=== PATIENT | female | born 1960 | race Caucasian/White ===

== ENCOUNTER 2017-06-02 06:38 | Day surgery (SDC) | payer MEDICARE, BC ==
[2017-06-02] MEDS ORDERED: LIDOCAINE 1% W/EPI 1:200,000 MPF 30ML SQ ONE (06:39)
[2017-06-02] MEDS ORDERED: PROPOFOL 10 MG/ML VIAL IV ONE (06:39)
[2017-06-02] MEDS ORDERED: FENTANYL PF 100MCG/2ML VIAL IV ONE (06:39)
[2017-06-02] MEDS ORDERED: DEXAMETHASONE PRESERVATIVE FREE 10MG/ML VIAL IV ONE (06:39)
[2017-06-02] MEDS ORDERED: LIDOCAINE 2% MDV (20MG/ML) 20ML VIAL IV ONE (06:39)
[2017-06-02] MEDS ORDERED: MIDAZOLAM HCL 2MG/2ML VIAL IV ONE (06:39)
[2017-06-02] MEDS ORDERED: BUPIVACAINE 0.5% W/EPI MPF 30 ML VIAL IVP ONE (06:39)
--- NOTE | 2017-06-02 15:10 | Operative Note - Ferro ---
DATE OF SURGERY: 06/02/17 PREOPERATIVE DIAGNOSES: 1. POST CERVICAL LAMINECTOMY SYNDROME, ICD-10 CODE M96.1. 2. CERVICAL RADICULITIS, ICD-10 CODE M54.13. OPERATION: FLUOROSCOPICALLY-GUIDED CERVICAL EPIDURAL INJECTION RIGHT QUADRANT, C6/C7. SURGEON: WALDEMAR WORRELL D.O. ANESTHESIA: LOCAL WITH SEDATION. ANESTHESIA PROVIDER: LYNN CANALES CRNA. INDICATION: This patient presents with plate and screw fusion cervical spine at 5/6 and pain, which starts in the neck but then extends into the shoulders and arms. Diagnostics confirm the plate and screw fusion at 5/6 and diffuse abnormalities above and below. PROCEDURE: Intravenous line, vital sign monitoring, IV sedation, prepped, draped, sterile technique. The epidural interspace at C5/6 could not be entered , 6/7 marked and infiltrated. A #20 gauge 3.5-inch Tuohy needle with loss-of- resistance. 5 mL of 0.125% Marcaine with Dexamethasone injected. Needle removed. Neck cleaned, topical antibiotic, and sterile dressing were applied. We will monitor and evaluate. cc: Dr. Whitney JOB NUMBER: [id number] MTDD
== END 2017-06-02 08:35 | disposition home or self-care (01) ==
LOC: SUR 06:38
PROVIDERS: ATTEND Pain Medicine Interventional Pain Medicine
DX: M96.1 Postlaminectomy syndrome, not elsewhere classified (principal); M54.13 Radiculopathy, cervicothoracic region; I10 Essential (primary) hypertension; E78.00 Pure hypercholesterolemia, unspecified
CPT/HCPCS: 62320; 01936; Q9967; J1100; J3010

== ENCOUNTER 2017-09-01 06:57 | Day surgery (SDC) | payer MEDICARE, BC ==
[2017-09-01] MEDS ORDERED: *PACU ONLY* KETAMINE HCL 10 MG/ML (20ML) VIAL IV ONE (06:58)
[2017-09-01] MEDS ORDERED: MIDAZOLAM HCL 2MG/2ML VIAL IV ONE (06:58)
[2017-09-01] MEDS ORDERED: LIDOCAINE 1% W/EPI 1:200,000 MPF 30ML SQ ONE (06:58)
[2017-09-01] MEDS ORDERED: DEXAMETHASONE PRESERVATIVE FREE 10MG/ML VIAL IV ONE (06:58)
[2017-09-01] MEDS ORDERED: BUPIVACAINE 0.5% W/EPI MPF 30 ML VIAL IVP ONE (06:58)
[2017-09-01] MEDS ORDERED: PROPOFOL 10 MG/ML VIAL IV ONE (06:58)
[2017-09-01] MEDS ORDERED: HYDROMORPHONE HCL 2 MG/ML VIAL IV ONE (06:58)
[2017-09-01] MEDS ORDERED: LIDOCAINE 2% MDV (20MG/ML) 20ML VIAL IV ONE (06:58)
--- NOTE | 2017-09-01 22:26 | Operative Note - Ferro ---
DATE OF SURGERY: 09/01/17. PREOPERATIVE DIAGNOSIS: LUMBAR SPONDYLOSIS WITHOUT MYELOPATHY, ICD-10 CODE = M47.816. SURGERY: RADIOFREQUENCY RHIZOTOMY BILATERAL LUMBAR FACETS 4-5 AND 5-1. SURGEON: WALDEMAR WORRELL D.O. ANESTHESIA: LOCAL SEDATION. ANESTHESIA PROVIDER: STANFORD INDICATION: This patient presents with primary back pain. Examination showed tenderness in the lumbar spine. Range of motion does cause pain in the low back with extension. Diagnostic imaging shows diffuse and multilevel facet spondylosis. A previous facet series with 75-85% pain control. Levels block 3-4 to 5-1. Insurance authorization only 4-5 and 5-1. SURGERY: Intravenous line, vital sign monitoring, IV sedation, prepped and draped, sterile technique. Facet levels at 4-5 and 5-1 identified and marked bilaterally. Skin infiltrated. A #20 gauge rhizotomy cannula positioned. Stimulation trials conducted. Rhizotomy burn performed. Local with anti- inflammatory into the sites. Topical antibiotics. Sterile dressing was applied. We will monitor and evaluate. cc: Dr. Stanley JOB NUMBER: [id number] MTDD
== END 2017-09-01 10:00 | disposition home or self-care (01) ==
LOC: SUR 06:57
PROVIDERS: ATTEND Pain Medicine Interventional Pain Medicine
DX: M47.816 Spondylosis without myelopathy or radiculopathy, lumbar region (principal); I10 Essential (primary) hypertension; E78.00 Pure hypercholesterolemia, unspecified

== ENCOUNTER 2017-09-22 06:45 | Day surgery (SDC) | payer MEDICARE, BC ==
[2017-09-22] MEDS ORDERED: PROPOFOL 10 MG/ML VIAL IV ONE (06:46)
[2017-09-22] MEDS ORDERED: BUPIVACAINE 0.5% W/EPI MPF 30 ML VIAL IVP ONE (06:46)
[2017-09-22] MEDS ORDERED: MIDAZOLAM HCL 2MG/2ML VIAL IV ONE (06:46)
[2017-09-22] MEDS ORDERED: BUPIVACAINE 0.25% MPF 30ML VIAL IVP ONE (06:46)
[2017-09-22] MEDS ORDERED: LIDOCAINE 1% W/EPI 1:200,000 MPF 30ML SQ ONE (06:46)
[2017-09-22] MEDS ORDERED: FENTANYL PF 100MCG/2ML VIAL IV ONE (06:46)
[2017-09-22] MEDS ORDERED: DEXAMETHASONE PRESERVATIVE FREE 10MG/ML VIAL IV ONE (06:46)
[2017-09-22] MEDS ORDERED: LIDOCAINE 2% MDV (20MG/ML) 20ML VIAL IV ONE (06:46)
--- NOTE | 2017-09-23 19:09 | Operative Note - Ferro ---
DATE OF SURGERY: 09/22/17 PREOPERATIVE DIAGNOSIS: LUMBAR RADICULOPATHY, ICD-10 CODE = M54.16 AND M54.17. SURGERY: 1. FLUOROSCOPIC-GUIDED RIGHT TRANSFORAMINAL SELECTIVE SEGMENTAL EPIDURAL INJECTION L2-3 AND L4-5. SURGEON: WALDEMAR WORRELL D.O. ANESTHESIA: LOCAL SEDATION. ANESTHESIA PROVIDER: LYNN CANALES CRNA INDICATION: This patient presents with pain across the very upper front surface of the right leg, almost low abdomen, along with pain towards the hip and outer posterior surface of the right leg. Diagnostics showed disc abnormalities as high as 2-3 through 4-5 and 5-1. The pattern of pain; 2-3 and 4-5. SURGERY: Intravenous line, vital sign monitoring, IV sedation, prepped and draped sterile technique. Under imaging, lumbar foraminal opening on the right at 2-3 and 4-5 marked and infiltrated. Two separate #20 gauge needles, one in each foraminal opening, 5 mL of 0.125% Marcaine with Dexamethasone injected at each. [place] were removed, back cleaned, topical antibiotic, and sterile dressing were applied. We will monitor and evaluate. cc: Dr. Rex Stanley JOB NUMBER: [id number] MTDD
== END 2017-09-22 09:00 | disposition home or self-care (01) ==
LOC: SUR 06:45
PROVIDERS: ATTEND Pain Medicine Interventional Pain Medicine
DX: M54.16 Radiculopathy, lumbar region (principal); M54.17 Radiculopathy, lumbosacral region; I10 Essential (primary) hypertension; E78.00 Pure hypercholesterolemia, unspecified; F41.9 Anxiety disorder, unspecified

== ENCOUNTER 2018-02-09 06:22 | Day surgery (SDC) | payer MEDICARE, BC ==
[2018-02-09] MEDS ORDERED: LIDOCAINE 1% W/EPI 1:200,000 MPF 30ML SQ ONE (06:23)
[2018-02-09] MEDS ORDERED: FENTANYL PF 100MCG/2ML VIAL IV ONE (06:23)
[2018-02-09] MEDS ORDERED: DEXAMETHASONE PRESERVATIVE FREE 10MG/ML VIAL IV ONE (06:23)
[2018-02-09] MEDS ORDERED: PROPOFOL 10 MG/ML VIAL IV ONE (06:23)
[2018-02-09] MEDS ORDERED: **ER** KETAMINE HCL 500MG/10ML VIAL IV ONE (06:23)
[2018-02-09] MEDS ORDERED: MIDAZOLAM HCL 2MG/2ML VIAL IV ONE (06:23)
[2018-02-09] MEDS ORDERED: BUPIVACAINE 0.5% W/EPI MPF 30 ML VIAL IVP ONE (06:23)
[2018-02-09] MEDS ORDERED: LIDOCAINE 2% MDV (20MG/ML) 20ML VIAL IV ONE (06:23)
--- NOTE | 2018-02-09 16:15 | Operative Note ---
DATE OF SURGERY: 02/09/18 PREOPERATIVE DIAGNOSIS: CERVICAL SPONDYLOSIS WITHOUT MYELOPATHY, ICD-10 CODE = M47.812. OPERATION: RADIOFREQUENCY RHIZOTOMY BILATERAL CERVICAL FACETS 4-5, 5-6, AND 6-7. SURGEON: WALDEMAR WORRELL D.O. ANESTHESIA: LOCAL SEDATION. ANESTHESIA PROVIDER: STANFORD Slade. INDICATION: This patient presents with primary neck pain. Examination shows tenderness cervical spine. Range of motion does cause to the neck with extension. Diagnostic imaging shows diffuse and multiple levels of endplate spurring and osteophytic spur formation. A previous facet series 75% pain control. Due to the failure of therapy and success of facet series, the patient presents for rhizotomy for more long-term relief. PROCEDURE: Intravenous line, vital sign monitoring, IV sedation, prepped, draped, sterile technique. Facet levels 4-5, 5-6, and 6-7 cervical identified and marked bilateral. Skin infiltrated and a 22-gauge rhizotomy cannula positioned. Stimulation trials conducted. Rhizotomy burn performed. Local with anti-inflammatory into the sites. Topical antibiotics. Sterile dressing applied. We will monitor and evaluate. cc: Dr. Whitney JOB NUMBER: [id number] MTDD
== END 2018-02-09 08:30 | disposition home or self-care (01) ==
LOC: SUR 06:22
PROVIDERS: ATTEND Pain Medicine Interventional Pain Medicine
DX: M47.812 Spondylosis without myelopathy or radiculopathy, cervical region (principal); I10 Essential (primary) hypertension; E78.00 Pure hypercholesterolemia, unspecified; J45.909 Unspecified asthma, uncomplicated; G47.33 Obstructive sleep apnea (adult) (pediatric); M79.7 Fibromyalgia
CPT/HCPCS: 64633; 64634 ×2; 01936; J1100; J3010

== ENCOUNTER 2018-03-09 06:37 | Day surgery (SDC) | payer MEDICARE, BC ==
[2018-03-09] MEDS ORDERED: MIDAZOLAM HCL 2MG/2ML VIAL IV ONE (06:38)
[2018-03-09] MEDS ORDERED: DEXAMETHASONE PRESERVATIVE FREE 10MG/ML VIAL IV ONE (06:38)
[2018-03-09] MEDS ORDERED: LIDOCAINE 2% MDV (20MG/ML) 20ML VIAL IV ONE (06:38)
[2018-03-09] MEDS ORDERED: PROPOFOL 10 MG/ML VIAL IV ONE (06:38)
[2018-03-09] MEDS ORDERED: BUPIVACAINE 0.5% W/EPI MPF 30 ML VIAL IVP ONE (06:38)
[2018-03-09] MEDS ORDERED: BUPIVACAINE 0.25% MPF 30ML VIAL IVP ONE (06:38)
[2018-03-09] MEDS ORDERED: FENTANYL PF 100MCG/2ML VIAL IV ONE (06:38)
[2018-03-09] MEDS ORDERED: LIDOCAINE 1% W/EPI 1:200,000 MPF 30ML SQ ONE (06:38)
[2018-03-09] MEDS ORDERED: BUPIVACAINE 0.5% (5MG/ML) PF 30ML VIAL IVP ONE (06:38)
--- NOTE | 2018-03-09 20:26 | Operative Note ---
DATE OF SURGERY: 03/09/2018 PREOPERATIVE DIAGNOSIS: CERVICAL RADICULOPATHY, ICD-10 CODE = M54.12 AND OCCIPITAL NEURALGIA, ICD-10 CODE = UNKNOWN. SURGERY: 1. FLUOROSCOPIC-GUIDED CERVICAL EPIDURAL INJECTION RIGHT QUADRANT C5-6 WITH 0.125% MARCAINE WITH DEXAMETHASONE. 2. INFILTRATION AND BLOCK BILATERAL GREATER OCCIPITAL NERVES. SURGEON: WALDEMAR WORRELL D.O. ANESTHESIA: LOCAL SEDATION. ANESTHESIA PROVIDER: INSTRUMENT PANEL ASSEMBLER. INDICATIONS: This patient presents with pain, which starts in the neck and then extends into the shoulders and arms. Separately, a pain pattern extending up to the back side of the head running laterally along the ears consistent with the occipital distribution. Diagnostic studies show a 5-6, 6-7 disc abnormality and multiple levels of cervical spondylosis. SURGERY: Intravenous line, vital sign monitoring, IV sedation, prepped and draped sterile technique. Cervical epidural interspace C5-6 identified and marked to the right, skin infiltrated. A #20 gauge, 3.5 inch Tuohy needle with [id number]. 5 mL of 0.125% Marcaine with Dexamethasone injected. The greater occipitals identified at the posterior cervical and suboccipital region. Skin infiltrated and then a #25 gauge needle and 0.5% Marcaine was used to block first the greater occipital right and the greater occipital left. Areas cleaned. Topical antibiotic and sterile dressing applied. We will monitor and evaluate. cc: Dr. Rex Stanley JOB NUMBER: [id number] MTDD
== END 2018-03-09 09:10 | disposition home or self-care (01) ==
LOC: SUR 06:37
PROVIDERS: ATTEND Pain Medicine Interventional Pain Medicine
DX: M54.12 Radiculopathy, cervical region (principal); M54.81 Occipital neuralgia; I10 Essential (primary) hypertension; E78.00 Pure hypercholesterolemia, unspecified; J45.909 Unspecified asthma, uncomplicated
CPT/HCPCS: 64479; 64450; 01935; J1100; J3010

== ENCOUNTER 2018-03-30 07:52 | Day surgery (SDC) | payer MEDICARE, BC ==
[2018-03-30] MEDS ORDERED: FENTANYL PF 100MCG/2ML VIAL IV ONE (07:53)
[2018-03-30] MEDS ORDERED: LIDOCAINE 1% W/EPI 1:200,000 MPF 30ML SQ ONE (07:53)
[2018-03-30] MEDS ORDERED: MIDAZOLAM HCL 2MG/2ML VIAL IV ONE (07:53)
[2018-03-30] MEDS ORDERED: DEXAMETHASONE PRESERVATIVE FREE 10MG/ML VIAL IV ONE (07:53)
[2018-03-30] MEDS ORDERED: BUPIVACAINE 0.5% W/EPI MPF 30 ML VIAL IVP ONE (07:53)
[2018-03-30] MEDS ORDERED: PROPOFOL 10 MG/ML VIAL IV ONE (07:53)
[2018-03-30] MEDS ORDERED: LIDOCAINE 2% MDV (20MG/ML) 20ML VIAL IV ONE (07:53)
--- NOTE | 2018-04-01 07:53 | Operative Note ---
DATE OF SURGERY: 03/30/2018. PREOPERATIVE DIAGNOSIS: SACROILIITIS, ICD-10 CODE M46.1. PROCEDURE: 1. Radiofrequency rhizotomy of the bilateral posterior peripheral nerve root S1 sacroiliac joint. 2. Radiofrequency rhizotomy of the bilateral posterior peripheral nerve root S2 sacroiliac joint. 3. Radiofrequency rhizotomy of the bilateral posterior peripheral nerve root S3 sacroiliac joint. INDICATIONS: This patient presents with back pain. Examination shows tenderness in the lumbar spine away from the midline directly over the sacroiliac joints. A sacroiliac series provided 75 percent relief. Due to the failure of therapy and the success of the sacroiliac series, the patient presents for rhizotomy for more long-term relief. DESCRIPTION OF PROCEDURE: Intravenous lines, vital sign monitoring, and intravenous sedation. Prepped and draped with sterile technique. The foraminal openings at S1, S2, and S3 were identified and marked bilaterally. The skin was infiltrated infiltrated. A 22-gauge rhizotomy cannula was positioned. Stimulation trial was conducted and rhizotomy burn was performed at 80 degrees for 90 seconds at each. Local with anti-inflammatory into the sites. Topical antibiotic and sterile dressing applied. Will monitor and evaluate. cc: Rex Stanley D.O. JOB NUMBER: [id number] MTDD
== END 2018-03-30 10:10 | disposition home or self-care (01) ==
LOC: SUR 07:52
PROVIDERS: ATTEND Pain Medicine Interventional Pain Medicine
DX: M46.1 Sacroiliitis, not elsewhere classified (principal); I10 Essential (primary) hypertension; E78.00 Pure hypercholesterolemia, unspecified
CPT/HCPCS: 64640 ×3; 01991; J1100; J3010

== ENCOUNTER 2018-04-27 06:10 | Day surgery (SDC) | payer MEDICARE, BC ==
[2018-04-27] MEDS ORDERED: PROPOFOL 10 MG/ML VIAL IV ONE (06:11)
[2018-04-27] MEDS ORDERED: DEXAMETHASONE PRESERVATIVE FREE 10MG/ML VIAL IV ONE (06:11)
[2018-04-27] MEDS ORDERED: MIDAZOLAM HCL 2MG/2ML VIAL IV ONE (06:11)
[2018-04-27] MEDS ORDERED: BUPIVACAINE 0.5% W/EPI MPF 30 ML VIAL IVP ONE (06:11)
[2018-04-27] MEDS ORDERED: BUPIVACAINE 0.5% (5MG/ML) PF 30ML VIAL IVP ONE (06:11)
[2018-04-27] MEDS ORDERED: LIDOCAINE 1% W/EPI 1:200,000 MPF 30ML SQ ONE (06:11)
[2018-04-27] MEDS ORDERED: KETAMINE HCL 100MG/1ML VIAL INJ ONE (06:11)
--- NOTE | 2018-04-27 17:16 | Operative Note - Ferro ---
DATE OF SURGERY: 04/27/18 PRIMARY: DR. STANLEY PREOPERATIVE DIAGNOSES: 1. CERVICAL SPONDYLOSIS WITHOUT MYELOPATHY, ICD-10 CODE = M47.812. 2. OCCIPITAL NEURALGIA, ICD-10 CODE = M54.81. OPERATION: 1. FLUOROSCOPICALLY-GUIDED INFILTRATIONAL BLOCK BILATERAL CERVICAL FACETS 2-3 AND 3-4. 2. INFILTRATIONAL BLOCK BILATERAL GREATER OCCIPITAL NERVES. SURGEON: WALDEMAR WORRELL D.O. ANESTHESIA: LOCAL SEDATION. ANESTHESIA PROVIDER: THERMAL TECHNICIAN. INDICATION: This patient presents with pain, which is head and neck. Examination shows diffuse tenderness of the cervical spine. Range of motion does produce pain to the neck with extension. Diagnostic studies show diffuse multiple levels of spondylitic change. There was a suboccipital component producing headaches. PROCEDURE: Intravenous line, vital sign monitoring, IV sedation, prepped, draped, sterile technique. Cervical facet levels in the area of pain were identified and marked at 2-3 and 3-4 bilateral. Each one of these points on the skin infiltrated. A 22-gauge, 3.5 inch needle into the facet with 1 mL of 0.5% Marcaine and Dexamethasone injected. This was repeated bilaterally. Suboccipital rim was prepped using a 25-gauge needle, the greater occipital nerves were blocked with 0.5% Marcaine and Dexamethasone. All areas cleaned. Topical antibiotics. Sterile dressing applied. We will monitor and evaluate. cc: Dr. Stanley JOB NUMBER: [id number] MTDD
== END 2018-04-27 08:30 | disposition home or self-care (01) ==
LOC: SUR 06:10
PROVIDERS: ATTEND Pain Medicine Interventional Pain Medicine
DX: M47.812 Spondylosis without myelopathy or radiculopathy, cervical region (principal); M54.81 Occipital neuralgia; I10 Essential (primary) hypertension; E78.00 Pure hypercholesterolemia, unspecified; J45.909 Unspecified asthma, uncomplicated; G47.33 Obstructive sleep apnea (adult) (pediatric); N17.9 Acute kidney failure, unspecified
CPT/HCPCS: 64490; 64491; 64405; 01992; J1100; J3490

== ENCOUNTER 2018-05-11 06:19 | Day surgery (SDC) | payer MEDICARE, BC ==
[2018-05-11] MEDS ORDERED: MIDAZOLAM HCL 2MG/2ML VIAL IV ONE (06:20)
[2018-05-11] MEDS ORDERED: LIDOCAINE 2% MDV (20MG/ML) 20ML VIAL IV ONE (06:20)
[2018-05-11] MEDS ORDERED: 0.9 % SODIUM CHLORIDE 10 ML VIAL IVP ONE (06:20)
[2018-05-11] MEDS ORDERED: DEXAMETHASONE PRESERVATIVE FREE 10MG/ML VIAL IV ONE (06:20)
[2018-05-11] MEDS ORDERED: FENTANYL PF 100MCG/2ML VIAL IV ONE (06:20)
[2018-05-11] MEDS ORDERED: LIDOCAINE 1% W/EPI 1:200,000 MPF 30ML SQ ONE (06:20)
[2018-05-11] MEDS ORDERED: BUPIVACAINE 0.25% MPF 30ML VIAL IVP ONE (06:20)
[2018-05-11] MEDS ORDERED: BUPIVACAINE 0.5% W/EPI MPF 30 ML VIAL IVP ONE (06:20)
[2018-05-11] MEDS ORDERED: PROPOFOL 10 MG/ML VIAL IV ONE (06:20)
--- NOTE | 2018-05-11 17:08 | Operative Note - Ferro ---
DATE OF SURGERY: 05/11/18 PREOPERATIVE DIAGNOSIS: RIGHT LUMBAR RADICULOPATHY, ICD-10 CODE = M54.16 AND M54.17. OPERATION: FLUOROSCOPICALLY-GUIDED RIGHT TRANSFORAMINAL SELECTIVE SEGMENTAL EPIDURAL INJECTION L1-2 AND L4-5. . SURGEON: WALDEMAR WORRELL D.O. ANESTHESIA: LOCAL SEDATION. ANESTHESIA PROVIDER: STANFORD Slade. INDICATION: This patient presents with radicular pain to the right. The upper level across the inguinal region, upper leg, and the second area mid to lower leg across the outer front surface including it. Diagnostics showed diffuse spondylosis. The pattern of pain is a 1-2 and a 4-5 distribution. PROCEDURE: Intravenous line, vital sign monitoring, IV sedation, prepped and draped in sterile technique. Lumbar foraminal opening on the right at 1-2 and 4- 5 both identified, marked, and infiltrated. Two separate 20-gauge needles, one to each foraminal opening. 5 mL of 0.125% Marcaine with Dexamethasone injected at each. [place] removed. Back cleaned. Topical antibiotics. Sterile dressing was applied. We will monitor and evaluate. cc: Dr. Stanley JOB NUMBER: [id number] MTDD
== END 2018-05-11 08:23 | disposition home or self-care (01) ==
LOC: SUR 06:19
PROVIDERS: ATTEND Pain Medicine Interventional Pain Medicine
DX: M54.16 Radiculopathy, lumbar region (principal); M54.17 Radiculopathy, lumbosacral region; I10 Essential (primary) hypertension; E78.00 Pure hypercholesterolemia, unspecified; K21.9 Gastro-esophageal reflux disease without esophagitis
CPT/HCPCS: 64483; 64484; 01935; Q9967; J1100; J3010

== ENCOUNTER 2018-08-10 08:11 | Day surgery (SDC) | payer MEDICARE, BC ==
--- NOTE | 2018-08-10 06:36 | History and Physical - Ferro ---
CHIEF COMPLAINT/HISTORY OF CHIEF COMPLAINT: This patient presents with pain which is thoracic as well as lumbar. Due to the failure of all therapies, she is here for an intraspinal infusion trial using Hydromorphone with an implanted catheter technique and an external pump. PAST MEDICAL HISTORY: Asthmatic bronchitis and hypertension. PAST SURGICAL HISTORY: Arthroscopic knee surgery, bowel resection, section, appendectomy and multiple orthopedic surgeries. MEDICATIONS ON ADMISSION: List to be provided. ALLERGIES: List to be provided. FAMILY/PSYCHOSOCIAL HISTORY: Social history - Noncontributory. Family history - Thyroid disease, asthma, diabetes, and coronary artery disease. SYSTEMS REVIEW: The patient is appropriate in no acute distress. The remainder of the systems review is positive for glasses, headaches, sleep disturbance, blood pressure, gastritis, degenerative arthritis, and anxiety disorder. PHYSICAL EXAMINATION: Height is 5'2", weight is 180. No vital signs. HEENT: Within normal limits. LUNGS: Clear. HEART: Rapid and regular. ABDOMEN: Nontender. MUSCULOSKELETAL: Examination of the musculoskeletal system show diffuse tenderness throughout the thoracic and lumbar spine. Range of motion does produce pain throughout the areas. Lower extremity components are more right than left across the outer front surface of the leg. Motor and sensory field abnormalities are not noted. Pain across multiple distributions thoracic and lumbar. NEUROLOGIC: Cranial nerves are intact. IMPRESSION: THORACIC AND LUMBAR RADICULOPATHY, ICD-10 CODE M54.14 AND M54.16. PLAN: The patient is here for an implanted spinal catheter infusion trial using Hydromorphone to determine if the implantation of a permanent system would be of any value. Her pain is quite extensive and includes radicular components throughout the thoracic and lumbar spine. An epidural blood patch will be performed as a prophylactic measure against spinal headache. The patient understands she will be flat for four and slowly elevated for one. The patient will be encouraged to stay overnight to help limit the incidence of a spinal headache. Relative risks, spinal cord injury, nerve root injury, and paralysis have all been reviewed and discussed. She has been put in contact with a clinical specialist from [employer] who has also discussed the procedure in some detail, questions were answered and reviewed, information provided by the naval aircrewman operator also given. JOB NUMBER: [id number] MTDD
[~2018-08-10 08:11] MED LIST: ACETAMINOPHEN 1,000 MG/100 ML BTL IV ONE; ACETAMINOPHEN 1,000 MG/100 ML BTL IVPB ONE; CEFAZOLIN 2 Gram 2 GM/50 ML BAG IVPB ONE; CEFAZOLIN 2 Gram 2 GM/50 ML BAG IVPB SCH; FAMOTIDINE 20MG TABLET PO ONE; HYDROMORPHONE PF 2MG/ML AMP 0.008 MG in 0.9 % SODIUM CHLORIDE 10ML VIA 0.996 ML IV ONE; HYDROMORPHONE PF 2MG/ML AMP 8 MG in 0.9 % SODIUM CHLORIDE 500ML 496 ML IV ONE; MECLIZINE 25 MG TABLET PO ONE; METOCLOPRAMIDE 10 MG TABLET PO ONE
[2018-08-10] MEDS ORDERED: GLYCOPYRROLATE 0.2 MG/ML ML IV ONE (08:12)
[2018-08-10] MEDS ORDERED: MIDAZOLAM HCL 2MG/2ML VIAL IV ONE (08:12)
[2018-08-10] MEDS ORDERED: KETAMINE HCL 100MG/1ML VIAL INJ ONE (08:12)
[2018-08-10] MEDS ORDERED: LIDOCAINE 2% MDV (20MG/ML) 20ML VIAL IV ONE (08:12)
[2018-08-10] MEDS ORDERED: FENTANYL PF 100MCG/2ML VIAL IV ONE (08:12)
[2018-08-10] MEDS ORDERED: PROPOFOL 10 MG/ML VIAL IV ONE (08:12)
[2018-08-10] MEDS ORDERED: RINGERS SOLUTION,LACTATED 1,000 ML IV ONE ×2 (09:54→12:00)
[2018-08-10] MEDS ORDERED: LIDOCAINE 1% W/EPI 1:100,000 MDV 20 ML VIAL SQ ONE ×2 (11:37)
[2018-08-10] MEDS ORDERED: BUPIVACAINE 0.5% W/EPI MPF 30 ML VIAL SQ ONE ×2 (11:37)
[2018-08-10] MEDS ORDERED: SENNOSIDES/DOCUSATE SODIUM UD CAPSULE PO PRN ×2 (14:29)
[2018-08-10] MEDS ORDERED: DIPHENHYDRAMINE HCL 25 MG CAPSULE PO PRN ×2 (14:29)
[2018-08-10] MEDS ORDERED: ACETAMINOPHEN 325 MG TAB PO PRN ×2 (14:29)
[2018-08-10] MEDS ORDERED: METOCLOPRAMIDE 10 MG TABLET PO PRN (14:29)
[2018-08-10] MEDS ORDERED: NALOXONE 0.4 MG/1 ML VIAL IVP PRN (14:29)
[2018-08-10] MEDS ORDERED: OXYCODONE/APAP 10MG-325MG TABLET PO PRN ×2 (14:29)
[2018-08-10] MEDS ORDERED: DIPHENHYDRAMINE HCL 50 MG/ML VIAL IVP PRN ×2 (14:29)
[2018-08-10] MEDS ORDERED: METOCLOPRAMIDE HCL 10 MG/2 ML VIAL IVP PRN (14:29)
[2018-08-10] MEDS ORDERED: AL HYDROX/MAG HYDROX 30ML UD PO PRN (14:29)
[2018-08-10] MEDS ORDERED: TEMAZEPAM 15 MG CAPSULE PO PRN ×2 (14:29)
[2018-08-10] MEDS ORDERED: HYDROCODONE/APAP 7.5/325MG TABLET PO PRN (14:29)
[2018-08-10] MEDS ORDERED: HYDROMORPHONE HCL 2 MG/ML VIAL IM PRN ×2 (14:29)
[2018-08-10] MEDS ORDERED: ONDANSETRON 4 MG ODT TABLET SL PRN (14:32)
[2018-08-10] MEDS: GABAPENTIN 100 MG CAPSULE PO SCH ×2 (15:08→21:06)
[2018-08-10] MEDS: GABAPENTIN 300 MG CAPSULE PO SCH ×2 (15:09→21:06)
[2018-08-10] MEDS: CYCLOBENZAPRINE 10MG TABLET PO SCH ×2 (15:09→21:05)
[2018-08-10] MEDS: HYDROCODONE/APAP 7.5/325MG TABLET PO PRN ×3 (15:09→22:29)
[2018-08-10] MEDS: DICYCLOMINE HCL 10 MG CAPSULE PO SCH ×2 (18:16→21:05)
[2018-08-10] MEDS: CEFAZOLIN 1G VIAL IVP SCH (19:25)
[2018-08-10] MEDS: RINGERS SOLUTION,LACTATED 1,000 ML IV SCH ×2 (20:57→22:28)
[2018-08-10] MEDS ORDERED: ATENOLOL 50 MG TABLET PO SCH (22:00)
[2018-08-10] MEDS ORDERED: QUETIAPINE FUMARATE 100 MG TABLET PO SCH (22:00)
[2018-08-10] MEDS ORDERED: ATORVASTATIN 20 MG TABLET PO SCH (22:00)
[2018-08-10] MEDS ORDERED: TRAZODONE 50 MG TABLET PO SCH (22:00)
[2018-08-10] MEDS ORDERED: EZETIMIBE 10 MG TABLET PO SCH (22:00)
[2018-08-11] MEDS: CEFAZOLIN 1G VIAL IVP SCH (02:43)
[2018-08-11] MEDS: HYDROCODONE/APAP 7.5/325MG TABLET PO PRN ×2 (05:19→09:06)
[2018-08-11] MEDS: RINGERS SOLUTION,LACTATED 1,000 ML IV SCH (06:03)
[2018-08-11] MEDS ORDERED: PANTOPRAZOLE SODIUM 40 MG TABLET PO SCH (07:00)
[2018-08-11] MEDS: DICYCLOMINE HCL 10 MG CAPSULE PO SCH (08:12)
[2018-08-11] MEDS: GABAPENTIN 100 MG CAPSULE PO SCH (09:07)
[2018-08-11] MEDS: GABAPENTIN 300 MG CAPSULE PO SCH (09:07)
[2018-08-11] MEDS: CYCLOBENZAPRINE 10MG TABLET PO SCH (09:07)
[2018-08-11] MEDS ORDERED: LOSARTAN POTASSIUM 25 MG TABLET PO SCH (10:00)
[2018-08-11] MEDS ORDERED: SPIRONOLACTONE 25 MG TAB PO SCH (10:00)
[2018-08-11] MEDS ORDERED: HYDROCHLOROTHIAZIDE 25 MG TABLET PO SCH (10:00)
--- NOTE | 2018-08-12 10:00 | Operative Note ---
DATE OF SURGERY: 08/10/2018 PREOPERATIVE DIAGNOSIS: Intractable lumbar radiculopathy, ICD-10 codes M54.16 and M54.17 OPERATION: 1. Fluoroscopic-guided access spinal space at L3-4, placement of spinal catheter advance to spinal space upper endplate T11. 2. Diagnostic myelography with radiologic supervision interpretation. 3. Bolus hydromorphone spinal space 0.0065. 4. Incision subcutaneous dissection and anchoring of spinal catheter to supraspinous fascia with a LTG Exam Prep Platformtronic locking anchor and nonabsorbable suture. 5. Incision and subcutaneous dissection for creation of a subcutaneous pouch at the left plank ultimately for pump, formation of subcutaneous pouch. 6. Tunneling midline spinal catheter into flank pouch, interface spinal catheter with second catheter component with connector. 7. Tunneling secondary catheter component 6 cm superior from flank pouch, exiting the skin, interfaced to external pump set to deliver hydromorphone at 0.12 mg a day. 8. Closure of midline spinal catheter pouch using 2-0 Vicryl for fascia, nylon interrupted, closure of left flank pouch using running nylon. 9. Epidural blood patch at L4-5 using an 18 gauge Tuohy needle with loss of resistance with 20 mL of autologous blood drawn sterile technique left antecubital. 10. Placement of dressings securing catheter and all connections under a sterile dressing and closing the incisional sites. 11. Transfer the patient to recovery room with flat pillow under head and knees, atraumatic, during the procedure CSF was noted through the catheter at all points. The contrast myelogram performed demonstrated appropriate flow characteristics. There was no unusual pain, no unusual activity. She had full functionality of her extremities and was appropriate. She will be kept flat for 4 hours, slowly elevated for 1 and be overnight for observation. SURGEON: Lucas Castillo D.O. PRIMARY: Dr. Stanley. DISCHARGE INSTRUCTIONS: 1. The sites will remain clean and dry. The patient may move around, but should not shower or get the dressings wet. 2. Standard medications resumed including Levaquin antibiotic 500 mg once a day for 14 days. 3. Spinal opioid side effects of respiratory depression, nausea, vomiting, constipation, urinary retention, lightheadedness, or rash have all been discussed and reviewed. Should these happen, she should contact the clinic immediately or go to the local emergency room. 4. Trial period 2 weeks. During this time office will contact the patient for 3 increases. We will increase until we have appropriate pain control and at that point and at the end of the 2 week period time, we will either implant permanent system, removing external components or we will remove the implanted spinal catheter. 5. All instructions were provided, with numbers to contact for problems given. She will be seen in the office within the next 24 to 48 hours. CC: Dr. Jaden TRIPLETT
--- NOTE | 2018-08-12 12:27 | RADIOLOGY REPORT ---
EXAM: THORACOLUMBAR SPINE HISTORY: PAIN PUMP TRIAL. TECHNIQUE: A single frontal view of the thoracolumbar spine was obtained. Comparison: None. FINDINGS: A thin radiolucent catheter superimposes the left suresh-abdomen and lower thoracic spine. Please see operative report for additional details. Degenerative changes are noted in the visualized lower lumbar spine. IMPRESSION: ABOVE. JOB NUMBER: [id number] MTDD
== END 2018-08-11 10:10 | disposition home or self-care (01) ==
LOC: SUR 08:11 → MEDSURG 13:03 → SUR 08-11 10:10
PROVIDERS: ATTEND Pain Medicine Interventional Pain Medicine
DX: M54.16 Radiculopathy, lumbar region (principal); M54.17 Radiculopathy, lumbosacral region; I10 Essential (primary) hypertension; E78.00 Pure hypercholesterolemia, unspecified; J45.909 Unspecified asthma, uncomplicated; I34.1 Nonrheumatic mitral (valve) prolapse; R00.2 Palpitations; Z87.19 Personal history of other diseases of the digestive system
CPT/HCPCS: 72020; J0690; J1170; J3490; J7040; J7120

== ENCOUNTER 2018-08-24 11:26 | Day surgery (SDC) | payer MEDICARE, BC ==
--- NOTE | 2018-08-24 07:42 | History and Physical - Ferro ---
CHIEF COMPLAINT/HISTORY OF CHIEF COMPLAINT: This patient with an ongoing implanted spinal catheter infusion trial using Hydromorphone is here for permanent implant. The trial was initiated due to the failure of all therapies. Her current dose is 0.5 mg a day. PAST MEDICAL HISTORY: Unchanged. PAST SURGICAL HISTORY: Unchanged. MEDICATIONS ON ADMISSION: Unchanged. ALLERGIES: Unchanged. FAMILY/PSYCHOSOCIAL HISTORY: Social history - Unchanged. Family history - Unchanged. SYSTEMS REVIEW: The patient is appropriate in no acute distress. PHYSICAL EXAMINATION: Height is 5'2", weight is 180. No vital signs. HEENT: Within normal limits. LUNGS: Clear. HEART: Rapid and regular. ABDOMEN: Nontender. MUSCULOSKELETAL: Examination of the musculoskeletal system shows with all of the dressings in place an externalized catheter interfaced to the external pump in place and functional. Underlying pain pattern is thoracic and lumbar radiculopathy. NEUROLOGIC: Cranial nerves are intact. IMPRESSION: 1. THORACIC AND LUMBAR RADICULOPATHY, ICD-10 CODE M54.14 AND M54.16. 2. IMPLANTED SPINAL CATHETER INFUSION TRIAL USING HYDROMORPHONE. PLAN: Due to the failure of all therapies, a trial was conducted and has resulted in 75+% pain control. Due to the previous failures and the success of the trial, she is here by her request for implantation of a permanent system. We will remove all of the external components, interface the indwelling catheter with the pump placed subcutaneously in its previous location left flank. The procedure will be considered outpatient although an overnight stay will be evaluated. JOB NUMBER: [id number] MTDD
[~2018-08-24 11:26] MED LIST changes: -ACETAMINOPHEN 1,000 MG/100 ML BTL IV ONE; +CEFAZOLIN 1G VIAL IVP ONE; -CEFAZOLIN 2 Gram 2 GM/50 ML BAG IVPB ONE; -CEFAZOLIN 2 Gram 2 GM/50 ML BAG IVPB SCH; +HYDROMORPHONE HCL IV ONE; -HYDROMORPHONE PF 2MG/ML AMP 8 MG in 0.9 % SODIUM CHLORIDE 500ML 496 ML IV ONE; +SODIUM CHLORIDE 0.9% IV ONE; +WATER STERILE FOR INJECTION 20 ML VIAL MC ONE
[2018-08-24] MEDS ORDERED: FENTANYL PF 100MCG/2ML VIAL IV ONE (11:27)
[2018-08-24] MEDS ORDERED: PROPOFOL 10 MG/ML VIAL IV ONE (11:27)
[2018-08-24] MEDS ORDERED: KETAMINE HCL 100MG/1ML VIAL INJ ONE (11:27)
[2018-08-24] MEDS ORDERED: LIDOCAINE 2% MDV (20MG/ML) 20ML VIAL IV ONE (11:27)
[2018-08-24] MEDS ORDERED: MIDAZOLAM HCL 2MG/2ML VIAL IV ONE (11:27)
[2018-08-24] MEDS ORDERED: RINGERS SOLUTION,LACTATED 1,000 ML IV ONE ×2 (12:15→14:46)
[2018-08-24] MEDS ORDERED: LIDOCAINE 1% W/EPI 1:200,000 MPF 30ML SQ ONE ×2 (14:22)
[2018-08-24] MEDS ORDERED: BUPIVACAINE 0.5% W/EPI MPF 30 ML VIAL SQ ONE ×2 (14:22)
[2018-08-24] MEDS ORDERED: CEFAZOLIN 0.5 G in 0.9 % SODIUM CHLORIDE 1000ML 500 ML IVP ONE (14:23)
--- NOTE | 2018-08-26 08:40 | Operative Note ---
DATE OF SURGERY: 08/24/2018 PREOPERATIVE DIAGNOSES: 1. Intractable lumbar radiculopathy, ICD10 code M54.16 and M54.17. 2. Implanted spinal catheter fusion trial of hydromorphone. OPERATION: 1. Fluoroscopic-guided incision and subcutaneous dissection and formation of subcutaneous pouch at left flank for placement of pump identified as a Medtronic 20 mL programmable. 2. Incision, subcutaneous dissection, and revision of internal catheter at pouch, cutting catheter from external component, removal of external catheter by pulling away from incision. 3. Revision of internal catheter using Enttec connector and second catheter component to interface to pump. 4. Placement of 20 mL programmable pump prefilled hydromorphone 10 mg/mL. 5. Interface pump to revise catheter. Place pump catheter combination into formed pouch left flank. 6. Securing pump to posterior fascia using pump eyelets 3 points and nonabsorbable suture. 7. Placement of curved 24-gauge Stoddard needle into access port of programmable pump aspirating and clearing catheter of opioid and CSF mixture. 8. Diagnostic myelography with radiologic supervision and interpretation through access port confirming functionality of catheter pump combination. 9. Closure of incisions using Stratafix suture 2-0 fascia, 3-0 skin, Dermabond closure. 10. Programming pump to deliver by continuous infusion of hydromorphone with 0.65 mg a day. SURGEON: Lucas Castillo DO ANESTHESIA: Local with sedation. ANESTHESIA PROVIDER: Junior Dutta INDICATION: This patient presents with a history of intractable lumbar radiculopathy. Due to the failure of therapy, an implanted catheter trial infusion hydromorphone ongoing with 75% plus pain control. Due to the failure of all therapies and the success of the trial, the patient presents today for implantation of permanent system. PROCEDURE: Intravenous line, vital sign monitoring, IV sedation by Anesthesia. Patient positioned on operating room table prone. Sterile prep and sterile technique. All the external dressings were removed. External pump removed. Connection to the external pump was clamped and cut. Sterile prep, sterile technique. Under imaging, the pouch at the left posterior gluteal margin for the previous pump catheter connection was infiltrated with local. Incision made and subcutaneous dissection was conducted at the left flank to form a pouch of suitable size and depth for the pump, a Medtronic 20 mL programmable. In the internal part of the pouch, the indwelling spinal catheter interfaced to the external catheter was clamped, cut, and the external catheter removed by pulling away from the incision. The internal catheter was then revised, resected with a second catheter component by way of connector. A 20 mL programmable Medtronic pump prefilled hydromorphone 10 mg/mL placed onto the field. The revised catheter was then interfaced to the pump. Antibiotic irrigation and Bovie for hemostasis. The pump was then placed into the pouch and filled and attached to the posterior fascia with nonabsorbable suture 3 points pump eyelets. With the pump secured into the pouch, a curved 24-gauge Stoddard needle was inserted in the access port, 1 mL of catheter contents was aspirated clearing the catheter of opioid and CSF mixture. CSF was easily aspirated. Diagnostic myelography was then performed through the access port. The resulting flow characteristics of contrast on imaging on imaging showed contrast moving through the pump, pump connection, and into the spinal space at approximately T12. Appropriate flow characteristics noted. Functionality of the system was then assured. Needle removed. With the pump in the pouch, the incision was closed using Stratafix suture, 2-0 fascia, 3-0 skin, Dermabond closure approximating the edges of both wound. She was transported to recovery room stable. No side effects from the procedure or sedation. She was monitored awake and alert and then prepared for discharge. DISCHARGE INSTRUCTIONS: 1. The sites will remain clean and dry. No showering or bathing in any way that will disrupt dressings. If it happens, contact the clinic. 2. Standard medications resumed including the antibiotic Levaquin. She will take 500 mg once a day for 7 days. She will be seen in the office in 5-7 days. At that point, the antibiotic will be discontinued. All instructions provided. Spinal opiate side effects including respiratory depression, nausea, vomiting, constipation, urinary retention, lightheadedness, rash have been discussed and reviewed. The Dermabond dressing is to stay intact. She can trim the edges but not remove the dressing itself. All other instructions were provided. CC: Dr. Jaden TRIPLETT
== END 2018-08-24 15:45 | disposition home or self-care (01) ==
LOC: SUR 11:26
PROVIDERS: ATTEND Pain Medicine Interventional Pain Medicine
DX: M54.16 Radiculopathy, lumbar region (principal); M54.17 Radiculopathy, lumbosacral region; I10 Essential (primary) hypertension; E78.00 Pure hypercholesterolemia, unspecified; J45.909 Unspecified asthma, uncomplicated
CPT/HCPCS: 62350; 62362; 01936; 62367; Q9967; J3010; J1170; J3490; C1755; C1776; J0690; J7030; J7120

== ENCOUNTER 2018-10-04 14:16 | Emergency (ER) | payer MEDICARE, BC ==
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
[2018-10-04] MEDS ORDERED: METHYLPREDNISOLONE 80MG/VIAL IM ONE (14:46)
[2018-10-04] MEDS ORDERED: MORPHINE SULFATE 10MG/1ML **1ML VIAL IM ONE (14:46)
--- NOTE | 2018-10-05 19:39 | RADIOLOGY REPORT ---
EXAMINATION: Lumbar spine with oblique views. CLINICAL HISTORY: Pain in right lower extremity extending from lower back into right thigh. Right lower extremity numbness. TECHNIQUE: AP, lateral, and both oblique views of the lumbar spine are obtained. COMPARISON: Single view of the spine dated 08/10/2018. FINDINGS: Five weightbearing lumbar-type vertebrae are re-demonstrated. There is minor dextrocurvature of the spine centered at the L2 level. The vertebral bodies are otherwise normal in alignment and height. Mild multilevel degenerative disc/degenerative end plate changes are present most pronounced at the mid to upper levels. Multilevel bilateral facet arthropathy is identified most pronounced at the lumbosacral junction where it is moderate to advanced. An intraspinal catheter is again noted in place appearing to enter the spinal canal at the mid lumbar level and the catheter tip on the frontal view projects at the superior T11 level. Mild degenerative spurring of the sacroiliac joints. IMPRESSION: 1. No acute osseous or ligamentous abnormality. 2. Degenerative changes scattered throughout the spine, described above. 3. Intraspinal catheter in place connected to a medication pump at the level of the left flank. [facility]
== END 2018-10-04 15:45 | disposition home or self-care (01) ==
LOC: ER 14:16
DX: M54.16 Radiculopathy, lumbar region (principal); M25.551 Pain in right hip; I10 Essential (primary) hypertension
CPT/HCPCS: 99283; 96372; 99284; 72110; J2270; J1040

== ENCOUNTER 2018-11-02 05:33 | Day surgery (SDC) | payer MEDICARE, BC ==
[2018-11-02] MEDS ORDERED: LIDOCAINE 2% MDV (20MG/ML) 20ML VIAL IV ONE (05:34)
[2018-11-02] MEDS ORDERED: MIDAZOLAM HCL 2MG/2ML VIAL IV ONE (05:34)
[2018-11-02] MEDS ORDERED: PROPOFOL 10 MG/ML VIAL IV ONE (05:34)
[2018-11-02] MEDS ORDERED: FENTANYL PF 100MCG/2ML VIAL IV ONE (05:34)
[2018-11-02] MEDS ORDERED: MECLIZINE 25 MG TABLET PO ONE (06:00)
[2018-11-02] MEDS ORDERED: RINGERS SOLUTION,LACTATED 1,000 ML IV ONE (06:00)
[2018-11-02] MEDS ORDERED: METOCLOPRAMIDE 10 MG TABLET PO ONE (06:00)
[2018-11-02] MEDS ORDERED: FAMOTIDINE 20MG TABLET PO ONE (06:00)
[2018-11-02] MEDS ORDERED: DEXAMETHASONE PRESERVATIVE FREE 10MG/ML VIAL SQ ONE (07:25)
[2018-11-02] MEDS ORDERED: BUPIVACAINE 0.5% W/EPI MPF 30 ML VIAL SQ ONE (07:25)
[2018-11-02] MEDS ORDERED: LIDOCAINE 1% W/EPI 1:200,000 MPF 30ML SQ ONE (07:25)
[2018-11-02] MEDS ORDERED: BUPIVACAINE 0.25% PF (2.5MG/ML) 10ML VIAL IM ONE (07:25)
--- NOTE | 2018-11-02 17:30 | Operative Note ---
DATE OF SURGERY: 11/02/2018 PREOPERATIVE DIAGNOSIS: Lumbar radiculopathy, ICD10 code M54.16 and M54.17, right. OPERATION: Fluoroscopic-guided right transforaminal selective segmental epidural injection L2-3 and L3-4. INDICATION: This patient presents with pain which is right-sided flank, hip, and leg. Diagnostics show multiple-level spondylitis change and disc abnormalities. There appears to be significant disc protrusion and bulging at 2-3 and 3-4. PROCEDURE: Intravenous line, vital sign monitoring, IV sedation, prepped and draped in sterile technique. Consistent with pattern of pain to the right lumbar foraminal opening at 2-3 and 3-4 both identified and marked. Skin infiltrated. Two separate 20-gauge needles one at each foraminal opening, 5 mL of 0.125% Marcaine with dexamethasone injected at each level. Both needles removed. Back cleaned. Topical antibiotic and sterile dressing applied. We will monitor and evaluate. MTDD
== END 2018-11-02 08:00 | disposition home or self-care (01) ==
LOC: SUR 05:33
PROVIDERS: ATTEND Pain Medicine Interventional Pain Medicine
DX: M54.16 Radiculopathy, lumbar region (principal); M54.17 Radiculopathy, lumbosacral region; I10 Essential (primary) hypertension; E78.00 Pure hypercholesterolemia, unspecified; N19 Unspecified kidney failure; G47.33 Obstructive sleep apnea (adult) (pediatric)
CPT/HCPCS: J7120

== ENCOUNTER 2019-05-03 10:54 | Day surgery (SDC) | payer MEDICARE, BC ==
--- NOTE | 2019-05-03 07:15 | History and Physical - [place] ---
CHIEF COMPLAINT/HISTORY OF CHIEF COMPLAINT: This patient presents with a history of an intractable lumbar radiculopathy. Diagnostic imaging of the lumbar spine, standard imaging shows retrolisthesis at L3-L4 and primary disk abnormality at L4-L5. MRI confirms degenerative disk disease with lumbar spinal stenosis at multiple levels including L2-L3 and L3-L4. An interspinal infusion device with a spinal catheter, the catheter appears to be at L3-L4. Primary pain pattern is radicular across the outer front surface of the right leg. PAST MEDICAL HISTORY: Asthmatic bronchitis and hypertension. PAST SURGICAL HISTORY: Arthroscopic knee surgery, bowel resection, section, appendectomy, multiple orthopedic procedures, pump implant and stimulator implant. MEDICATIONS ON ADMISSION: List to be provided. ALLERGIES: List to be provided. FAMILY/PSYCHOSOCIAL HISTORY: Family history - Thyroid disease, asthma, diabetes, and coronary artery disease. SYSTEMS REVIEW: The patient is appropriate in no acute distress. The remainder of the systems review is positive for glasses, headaches, sleep disturbance, blood pressure, gastritis, degenerative arthritis, and anxiety disorder. PHYSICAL EXAMINATION: Height is 5'2", weight is 180. No vital signs. HEENT: Within normal limits. LUNGS: Clear. HEART: [place] and regular. ABDOMEN: Nontender. MUSCULOSKELETAL: Examination of the musculoskeletal system shows the primary pain pattern across the outer front surface of the right leg. Ambulation produces pain. Sitting and forward bending reduces pain. Reviewing the MRI shows the disk at L2-L3 involves nerve root impingement to the outer front surface of the right leg and the disk at L3-L4 shows nerve root impingement to the left leg. Current evaluation shows pain and tenderness around the front leg. There are mild motor and sensory abnormalities. NEUROLOGIC: Cranial nerves are intact. IMPRESSION: MULTIPLE LEVEL LUMBAR SPINAL STENOSIS WITH NEUROGENIC INTERMITTENT CLAUDICATION, ICD-10 CODE M48.062. PLAN: The primary pain is related to the spinal stenosis, although there are multiple levels of spinal catheter that interferes with our ability at L3-L4 level. For that reason we are approaching with interspinal spacer placement at L2-L3 which is a nerve root level to the primary region of pain which seems to be the outer front surface of the right leg. As noted ambulation produces pain and sitting reduces and forward bending reduces the pain. JOB NUMBER: [id number] [facility]
[~2019-05-03 10:54] MED LIST changes: -CEFAZOLIN 1G VIAL IVP ONE; +CEFAZOLIN 2 Gram 2 GM/50 ML BAG IVPB ONE; -HYDROMORPHONE HCL IV ONE; -HYDROMORPHONE PF 2MG/ML AMP 0.008 MG in 0.9 % SODIUM CHLORIDE 10ML VIA 0.996 ML IV ONE; -SODIUM CHLORIDE 0.9% IV ONE; -WATER STERILE FOR INJECTION 20 ML VIAL MC ONE
[2019-05-03] MEDS ORDERED: PROPOFOL 10 MG/ML VIAL IV ONE (10:55)
[2019-05-03] MEDS ORDERED: FENTANYL PF 100MCG/2ML VIAL IV ONE (10:55)
[2019-05-03] MEDS ORDERED: MIDAZOLAM HCL 2MG/2ML VIAL IV ONE (10:55)
[2019-05-03] MEDS ORDERED: RINGERS SOLUTION,LACTATED 1,000 ML IV ONE (11:25)
[2019-05-03] MEDS ORDERED: LIDOCAINE 1% W/EPI 1:200,000 MPF 30ML SQ ONE ×2 (13:20)
[2019-05-03] MEDS ORDERED: BUPIVACAINE 0.5% W/EPI MPF 30 ML VIAL SQ ONE ×2 (13:20)
[2019-05-03] MEDS ORDERED: CEFAZOLIN 1G VIAL IR ONE (13:21)
[2019-05-03] MEDS ORDERED: HYDROCODONE/APAP 7.5/325MG TABLET PO ONE (14:09)
--- NOTE | 2019-05-04 19:50 | RADIOLOGY REPORT ---
EXAMINATION: Lumbosacral Spine Single View EXAM DATE: 05/04/2019 7:55 AM TECHNIQUE: Lateral view INDICATION: S/P VERTIFLEX IMPLANT COMPARISON: 10/04/2018 ENCOUNTER: Initial FINDINGS: Stable vertebral body heights and alignment. SI joints patent and symmetrical. Infusion pump projects over left leg. VERTIFLEX implant L3. IMPRESSION: No acute abnormality Dictated by: Chucky Corey MD on 05/04/2019 7:47 PM. .
--- NOTE | 2019-05-08 08:34 | Operative Note - [place] ---
DATE OF SURGERY: 05/03/2019 PREOPERATIVE DIAGNOSIS: MULTIPLE LEVEL LUMBAR SPINAL STENOSIS WITH NEUROGENIC INTERMITTENT CLAUDICATION, ICD-10 CODE M48.062. OPERATION: FLUOROSCOPICALLY GUIDED PLACEMENT OF INTERSPINAL SPACER AT L2-L3. SURGEON: Lucas Castillo D.O. ANESTHESIA: Local sedation. ANESTHESIA PROVIDER: REESE Angulo CRNA INDICATION: This patient presents with multiple level lumbar spinal stenosis including L2-L3, L3-L4, and L4-L5. The L2-L3 stenosis appears to be associated with an upper nerve root level to the patient's primary area of pain. The L3-L4 has a spinal catheter and although a desirable approach cannot be approach because of the interspinal catheter placement. Her pain pattern is low back and leg. The pain is aggravated and exacerbated by activities is reduced by sitting and forward bending. Due to the failure of all therapies and the pain pattern consistent with spinal stenosis neurogenic intermittent claudication, she is here for interspinal spacer placement. PROCEDURE: Intravenous line, vital sign monitoring, IV sedation. The patient was positioned prone. Sterile prep, sterile technique. Under imaging the spinal interspace at L2-L3 was marked, skin infiltrated, a 22-gauge needle was inserted on an AP direction, viewed laterally confirming position at the interspace L2-L3. The skin was infiltrated, a scalpel was used then to incise down to the interspinous ligament. On AP and lateral imaging an initial dilator was used and placed in between the spinous processes of L2 and L3. AP and lateral imaging was used to confirm position posterior to the lamina. A dilator was then inserted over the introducer and under AP and lateral imaging positioned to distract the spinous process at L2 and L3. Interfacing the dilator between the spinous processes locking the dilator in place. The introducer was removed, a debriding tool was then inserted to debride the interspinous ligament down to the lamina, but posterior to the laminar plates. A measuring gauge was then inserted to measure the distance between the spinous process L2 and L3. A 12 mm spacer was then selected. The measuring device was removed, the instrument was placed securing the interspinal spacer between the spinous processes and then using AP and lateral imaging was opened extending the edges of the spacer. Locking the device to the inferior spinous process L2 and to the upper aspect of the spinous process of L3 distracting the spinal space. The spacer was then fully extended. AP and lateral imaging was used to confirm position posterior to the lamina and between the spinous processes. It was then gently tapped into position up against the laminar plates. The instruments were removed, antibiotic irrigation was performed, AP and lateral imaging was done to confirm position. A Vicryl to approximate the fascia and then a running nylon for skin. OP-Site dressing placed. She was transported to the Recovery Room stable and there are no side effects from the procedure or sedation. She tolerated the procedure without difficulty. She was monitored until stable and then prepared for discharge. DISCHARGE INSTRUCTIONS: 1. The sites are to remain clean and dry. She may shower, but keep the dressing intact. 2. She has been provided with a prescription for analgesics which she will use to control the pain. An antibiotic will be called, Keflex 500 mg four times a day for ten days. 3. Her first evaluation will be in two weeks. She will have a total of six weeks restrictions limiting bend, lift, push and pull. She will be seen in 1- 1/2 to 2 weeks. All other instructions were provided. Numbers to contact if problems given. She will be discharged. JOB NUMBER: [id number] MTDD
== END 2019-05-03 14:25 | disposition home or self-care (01) ==
LOC: SUR 10:54
PROVIDERS: ATTEND Pain Medicine Interventional Pain Medicine
DX: M48.062 Spinal stenosis, lumbar region with neurogenic claudication (principal); I10 Essential (primary) hypertension; E78.00 Pure hypercholesterolemia, unspecified; R00.2 Palpitations; J45.909 Unspecified asthma, uncomplicated; G47.33 Obstructive sleep apnea (adult) (pediatric); N17.8 Other acute kidney failure; N14.0 Analgesic nephropathy
CPT/HCPCS: 72020; C1821; J0690; J7120